=== PATIENT | female | born 1950 | race Caucasian/White ===

== ENCOUNTER 2019-12-10 16:10 | Observation (INO) | payer OTHER ==
[~2019-12-10] VITALS: Ht 154.9 cm; Wt 63.6 kg
[~2019-12-10 16:10] MED LIST: ALBU90OI INH; AMIT50 PO; AMLO5 PO; CALCAVITD; CYCL10 PO; DIAZ10 PO; Desyrel150 MG PO; ESTR2 PO; FURO20 PO; HYDACE10B PO; LOSARTAN-HCTZ1 EAC1; METFORMIN HCL500 MG PO; METO50 PO; Multiple Vitam1 EAC1 PO; NAPR220 PO; PARO20 PO; POTA8 PO; Percocet 5-3251 EACH PO; Prednisone20 MG PO; TOUJEO MAX300 UNIT/1 SC; VERAPAMIL SR240 MG PO
[2019-12-10 17:36] LABS: BASOPHILS ABSOLUTE AUTO 0.08 K/mm3 (0.00-0.23); BASOPHILS PERCENT AUTO 1 % (0-2); EOSINOPHILS ABSOLUTE AUTO 0.17 K/mm3 (0.00-0.68); EOSINOPHILS PERCENT AUTO 2 % (0-6); Hematocrit 42.4 % (33.0-51.0); Hemoglobin 13.7 g/dL (11.5-16.0); IMMATURE GRAN ABSOLUTE AUTO 0.03 K/mm3 (0.00-0.10); IMMATURE GRAN PERCENT AUTO 0 % (0-1); LYMPHOCYTES ABSOLUTE AUTO 3.16 K/mm3 (0.84-5.20); LYMPHOCYTES PERCENT AUTO 30 % (21-46); MONOCYTES ABSOLUTE AUTO 0.78 K/mm3 (0.16-1.47); MONOCYTES PERCENT AUTO 7 % (4-13); Mean Corpuscular HGB 31.4 pg (26.0-34.0); Mean Corpuscular HGB Conc 32.3 g/dL (31.5-36.5); Mean Corpuscular Volume 97 fL (80-100); Mean Platelet Volume 9.3 fL (9.1-12.4); NEUTROPHILS ABSOLUTE AUTO 6.35 K/mm3 (1.96-9.15); NEUTROPHILS PERCENT AUTO 60 % (41-73); Platelet Count 329 K/mm3 (150-400); RDW Standard Deviation 46.8 fL (35.1-46.3); Red Blood Cell Count 4.36 M/mm3 (3.80-5.20); White Blood Cell Count 10.57 K/mm3 (4.00-11.30)
[2019-12-10 17:59] LABS: Troponin I 0.059 ng/mL (0.000-0.040)
[2019-12-10 18:03] LABS: Alanine Aminotransfer (ALT/SGP 21 U/L (12-78); Albumin, Blood 3.9 g/dL (3.4-5.0); Albumin/Globulin Ratio 1.1 (0.8-1.8); Alk Phos 83 U/L (50-136); Anion Gap 2 mmol/L (6-16); Aspartate Aminotrans (AST/SGOT 22 U/L (12-37); Bilirubin, Total 0.2 mg/dL (0.1-1.0); Blood Urea Nitrogen 20 mg/dL (8-24); Bun/Creatinine Ratio 39.1 (12.0-20.0); CO2, Blood 29 mmol/L (21-32); Calcium, Blood 9.2 mg/dL (8.5-10.1); Chloride, Blood 106 mmol/L (98-108); Creatinine, Blood 0.51 mg/dL (0.40-1.00); Globulin, Blood 3.7 g/dL (2.2-4.0); Glomerular Filtration Rate >60 (60-); Glucose, Blood 44 mg/dL (70-99); Potassium, Blood 3.8 mmol/L (3.5-5.5); Sodium, Blood 137 mmol/L (136-145); Total Protein, Blood 7.6 g/dL (6.4-8.2)
[2019-12-10] MEDS ORDERED: HYDCHL25 PO (18:58)
[2019-12-10] MEDS ORDERED: LOSARTAN POTAS100 MG PO (18:58)
[2019-12-10] MEDS ORDERED: TRAZ150T57 PO (19:25)
[2019-12-11 05:29] LABS: BASOPHILS ABSOLUTE AUTO 0.07 K/mm3 (0.00-0.23); BASOPHILS PERCENT AUTO 1 % (0-2); EOSINOPHILS ABSOLUTE AUTO 0.25 K/mm3 (0.00-0.68); EOSINOPHILS PERCENT AUTO 3 % (0-6); Hematocrit 41.2 % (33.0-51.0); Hemoglobin 13.4 g/dL (11.5-16.0); IMMATURE GRAN ABSOLUTE AUTO 0.02 K/mm3 (0.00-0.10); IMMATURE GRAN PERCENT AUTO 0 % (0-1); LYMPHOCYTES ABSOLUTE AUTO 2.58 K/mm3 (0.84-5.20); LYMPHOCYTES PERCENT AUTO 29 % (21-46); MONOCYTES ABSOLUTE AUTO 0.77 K/mm3 (0.16-1.47); MONOCYTES PERCENT AUTO 9 % (4-13); Mean Corpuscular HGB 31.2 pg (26.0-34.0); Mean Corpuscular HGB Conc 32.5 g/dL (31.5-36.5); Mean Corpuscular Volume 96 fL (80-100); Mean Platelet Volume 9.9 fL (9.1-12.4); NEUTROPHILS ABSOLUTE AUTO 5.14 K/mm3 (1.96-9.15); NEUTROPHILS PERCENT AUTO 58 % (41-73); Platelet Count 267 K/mm3 (150-400); RDW Coefficient Variation 13.1 % (11.7-14.2); RDW Standard Deviation 46.5 fL (35.1-46.3); Red Blood Cell Count 4.29 M/mm3 (3.80-5.20); White Blood Cell Count 8.83 K/mm3 (4.00-11.30)
[2019-12-11 06:14] LABS: Anion Gap 7 mmol/L (6-16); Blood Urea Nitrogen 16 mg/dL (8-24); Bun/Creatinine Ratio 25.4 (12.0-20.0); CO2, Blood 26 mmol/L (21-32); Calcium, Blood 8.7 mg/dL (8.5-10.1); Chloride, Blood 109 mmol/L (98-108); Creatinine, Blood 0.63 mg/dL (0.40-1.00); Glomerular Filtration Rate >60 (60-); Glucose, Blood 106 mg/dL (70-99); Potassium, Blood 3.8 mmol/L (3.5-5.5); Sodium, Blood 142 mmol/L (136-145)
--- NOTE | 2019-12-11 06:21 | NUR ---
PCU ADMIT / SHIFT SUMMARY PT BROUGHT TO PCU RM 12 FROM ER BY GAURAV @ APPROX 2100 THIS SHIFT. PT A&O X4, ABLE TO STAND & VERY WEAKLY/UNSTEADILY AMBULATE TO PCU BED W/ 1 PERSON ASSIST. PT REPORTS NORMALLY BEING INDEPENDENT AT HOME W/ NO ISSUES AMBULATING, BUT REPORTS WEAKNESS & UNSTEADINESS FOR PAST WEEK NOW. PT ADMITTED W/ LOW CBG's, BROUGHT TO PCU W/ D5/NS GTT INFUSING @ 75 MLS/HR PER ORDERS. Q2H CBG MONITORING PER ORDERS W/ LOWEST CBG OF 53 THIS SHIFT DESPITE D5/NS GTT. PT DENIED SYMPTOMS OF HYPOGLYCEMIA, BUT WAS NOTED TO HAVE BILAT HAND TREMORS. PT PROVIDED W/ 240 MLS ORANGE JUICE & HALF TURKEY SANDWICH W/ CBG INCREASE TO 131 UPON NEXT ASSSESSMENT, SEE LABS. PT REPORTS DECREASED APPETITE & WEIGHT LOSS AT HOME. PT'S FACE AND BILAT ARMS W/ NOTED BRUISING T/O W/ PT REPORT RESULT OF "PASSING OUT" AT HOME WHEN CBG LOW. PT ENCOURAGED TO EAT FREQUENT SNACKS WHILE IN HOSPITAL & AT HOME. WILL CONTINUE TO MONITOR AND PROVIDE CARE UNTIL REPORT OFF TO DAY SHIFT RN.
--- NOTE | 2019-12-11 16:46 | NUR ---
PT DISCHARGED TO HOME TODAY, D5NS 1BAG COMPLETED THIS AM CBGS HAS BEEN WITHIN NORMAL RANGE COUPLE OF HOURS PRIOR TO DISCHARGE, CBG'S RANGING 150'S-200'S. PT ATE 80% OF BREAKFAST AND LUNCH. HRR HAS BEEN RINUS RHYTHM ON 60'S-70'S THE SYSTOLIC BP 150'S-160'S ORAL BP MEDS GIVEN THIS AM. WAS AT THE BEDSIDE TIL THE PT WAS DISCHARGED. DISCHARGE MEDICATION/INSTRUCTION DISCLOSED WITH THE PT AND , DISCHARGE FORM CONSENT SIGNED. PT WAS ACCOMPANIED BY PCT FOR TRASNPORT. ALL BELONGINGS SENT WITH THE PATIENT.
== END 2019-12-11 16:35 | disposition home or self-care (01) ==
LOC: ER 16:10 → PCU 16:11
PROVIDERS: Physician Assistant; ADMIT Internal Medicine
DX: E11.649 Type 2 diabetes mellitus with hypoglycemia without coma (principal); R55 Syncope and collapse; I10 Essential (primary) hypertension; F41.9 Anxiety disorder, unspecified; F32.9 Major depressive disorder, single episode, unspecified; F17.210 Nicotine dependence, cigarettes, uncomplicated; Z91.013 Allergy to seafood; Z79.4 Long term (current) use of insulin; Z79.899 Other long term (current) drug therapy
CPT/HCPCS: 36415; 70450; 80048; 80053; 82947; 84484; 85025; 93005; 93010; 96372; 96374; 96375; 97161; 99285-25; A9270; A9270-GY; G0378; J0360; J1650; J7042

== ENCOUNTER → 2022-05-11 | Outpatient (CLI) | payer OTHER ==
[~2022-05-11] MED LIST changes: +HYDCHL25 PO; +LOSARTAN POTAS100 MG PO; +TRAZ150T57 PO
[2022-05-12 13:59] LABS: Candida species (DNA Probe) Positive (NEGATIVE); G. vaginalis (DNA Probe) Negative (NEGATIVE); T. vaginalis (DNA Probe) Negative (NEGATIVE)
== END | disposition home or self-care (01) ==
LOC: LAB 15:56 → LAB SHORT 15:56
PROVIDERS: Physician Assistant
DX: N76.0 Acute vaginitis (principal)
CPT/HCPCS: 87480; 87510; 87660

== ENCOUNTER → 2022-08-07 | Outpatient (CLI) | payer OTHER ==
[~2022-08-07] MED LIST changes: +DIAZ2; +HYDR1TAB94 PO; +SULTRIDS PO; +VENL150ER PO
== END | disposition home or self-care (01) ==
LOC: LAB SHORT 12:45 → LAB 12:45
DX: Z48.89 Encounter for other specified surgical aftercare (principal)
CPT/HCPCS: 87070; 87106; 87205

== ENCOUNTER → 2022-08-10 | Outpatient (CLI) | payer OTHER | END | disposition home or self-care (01) | LOC: LAB SHORT 13:52 → LAB 13:52 | DX: L08.9 Local infection of the skin and subcutaneous tissue, unspecified (principal) | CPT/HCPCS: 87070; 87075; 87106; 87205 ==

== ENCOUNTER 2022-08-12 11:00 | Emergency (ER) | payer OTHER ==
[~2022-08-12] VITALS: Ht 154.9 cm; Wt 65.8 kg
[~2022-08-12 11:00] MED LIST changes: -DIAZ2; -HYDR1TAB94 PO; -SULTRIDS PO; -VENL150ER PO
[2022-08-12 12:46] LABS: BASOPHILS ABSOLUTE AUTO 0.06 K/mm3 (0.00-0.23); BASOPHILS PERCENT AUTO 1 % (0-2); EOSINOPHILS ABSOLUTE AUTO 0.15 K/mm3 (0.00-0.68); EOSINOPHILS PERCENT AUTO 2 % (0-6); Hematocrit 36.7 % (33.0-51.0); Hemoglobin 11.9 g/dL (11.5-16.0); IMMATURE GRAN ABSOLUTE AUTO 0.02 K/mm3 (0.00-0.10); IMMATURE GRAN PERCENT AUTO 0 % (0-1); LYMPHOCYTES ABSOLUTE AUTO 1.93 K/mm3 (0.84-5.20); LYMPHOCYTES PERCENT AUTO 26 % (21-46); MONOCYTES ABSOLUTE AUTO 0.58 K/mm3 (0.16-1.47); MONOCYTES PERCENT AUTO 8 % (4-13); Mean Corpuscular HGB 30.2 pg (26.0-34.0); Mean Corpuscular HGB Conc 32.4 g/dL (31.5-36.5); Mean Corpuscular Volume 93 fL (80-100); Mean Platelet Volume 9.9 fL (9.1-12.4); NEUTROPHILS ABSOLUTE AUTO 4.62 K/mm3 (1.96-9.15); NEUTROPHILS PERCENT AUTO 63 % (41-73); Platelet Count 197 K/mm3 (150-400); RDW Coefficient Variation 13.4 % (11.7-14.2); RDW Standard Deviation 45.7 fL (35.1-46.3); Red Blood Cell Count 3.94 M/mm3 (3.80-5.20); White Blood Cell Count 7.36 K/mm3 (4.00-11.30)
[2022-08-12 13:09] LABS: C-REACTIVE PROTEIN, EXT RANGE <0.290 mg/dL (0.000-0.300)
[2022-08-12 13:13] LABS: Anion Gap 8 mmol/L (6-16); Blood Urea Nitrogen 25 mg/dL (8-24); Bun/Creatinine Ratio 35.2 (12.0-20.0); CO2, Blood 22 mmol/L (21-32); Chloride, Blood 110 mmol/L (98-108); Creatinine, Blood 0.71 mg/dL (0.40-1.00); Glomerular Filtration Rate 90 (60-); Glucose, Blood 114 mg/dL (70-99); Potassium, Blood 5.4 mmol/L (3.5-5.5); Sodium, Blood 140 mmol/L (136-145)
[2022-08-12] MEDS ORDERED: DIAZ2 (13:22)
[2022-08-12] MEDS ORDERED: VENL150ER PO (13:23)
[2022-08-12] MEDS ORDERED: SULTRIDS PO (13:27)
[2022-08-12] MEDS ORDERED: HYDR1TAB94 PO (13:27)
== END 2022-08-12 14:55 | disposition home or self-care (01) ==
LOC: ER 11:00
PROVIDERS: Emergency Medicine
DX: E11.622 Type 2 diabetes mellitus with other skin ulcer (principal); L97.521 Non-pressure chronic ulcer of other part of left foot limited to breakdown of skin; I10 Essential (primary) hypertension; F17.200 Nicotine dependence, unspecified, uncomplicated; Z91.041 Radiographic dye allergy status; Z91.013 Allergy to seafood; Z79.899 Other long term (current) drug therapy; Z79.84 Long term (current) use of oral hypoglycemic drugs
CPT/HCPCS: 73630; 80048; 85025; 85651; 86140; J2405; J2543; J3010

== ENCOUNTER 2022-09-26 21:16 | Emergency (ER) | payer OTHER ==
[~2022-09-26] VITALS: Ht 154.9 cm; Wt 62.6 kg
[~2022-09-26 21:16] MED LIST changes: +DIAZ2; +HYDR1TAB94 PO; +SULTRIDS PO; +VENL150ER PO
[2022-09-26 22:01] LABS: BASOPHILS ABSOLUTE AUTO 0.06 K/mm3 (0.00-0.23); BASOPHILS PERCENT AUTO 1 % (0-2); EOSINOPHILS ABSOLUTE AUTO 0.43 K/mm3 (0.00-0.68); EOSINOPHILS PERCENT AUTO 7 % (0-6); Hematocrit 29.6 % (33.0-51.0); Hemoglobin 9.5 g/dL (11.5-16.0); IMMATURE GRAN ABSOLUTE AUTO 0.02 K/mm3 (0.00-0.10); IMMATURE GRAN PERCENT AUTO 0 % (0-1); LYMPHOCYTES ABSOLUTE AUTO 2.46 K/mm3 (0.84-5.20); LYMPHOCYTES PERCENT AUTO 39 % (21-46); MONOCYTES ABSOLUTE AUTO 0.56 K/mm3 (0.16-1.47); MONOCYTES PERCENT AUTO 9 % (4-13); Mean Corpuscular HGB 30.9 pg (26.0-34.0); Mean Corpuscular HGB Conc 32.1 g/dL (31.5-36.5); Mean Corpuscular Volume 96 fL (80-100); Mean Platelet Volume 9.3 fL (9.1-12.4); NEUTROPHILS ABSOLUTE AUTO 2.83 K/mm3 (1.96-9.15); NEUTROPHILS PERCENT AUTO 45 % (41-73); Platelet Count 306 K/mm3 (150-400); RDW Coefficient Variation 13.7 % (11.7-14.2); RDW Standard Deviation 48.8 fL (35.1-46.3); Red Blood Cell Count 3.07 M/mm3 (3.80-5.20); White Blood Cell Count 6.36 K/mm3 (4.00-11.30)
[2022-09-26 22:57] LABS: Alanine Aminotransfer (ALT/SGP 19 U/L (12-78); Albumin, Blood 3.3 g/dL (3.4-5.0); Alk Phos 73 U/L (50-136); Anion Gap 7 mmol/L (6-16); Aspartate Aminotrans (AST/SGOT 15 U/L (12-37); Bilirubin, Total <0.1 mg/dL (0.1-1.0); Blood Urea Nitrogen 25 mg/dL (8-24); Bun/Creatinine Ratio 18.7 (12.0-20.0); CO2, Blood 23 mmol/L (21-32); Calcium, Blood 8.6 mg/dL (8.5-10.1); Chloride, Blood 110 mmol/L (98-108); Creatinine, Blood 1.34 mg/dL (0.40-1.00); Globulin, Blood 3.2 g/dL (2.2-4.0); Glomerular Filtration Rate 42 (60-); Glucose, Blood 133 mg/dL (70-99); Potassium, Blood 5.2 mmol/L (3.5-5.5); Sodium, Blood 140 mmol/L (136-145); Total Protein, Blood 6.5 g/dL (6.4-8.2)
== END 2022-09-27 00:17 | disposition left against medical advice (07) ==
LOC: ER 21:16
PROVIDERS: Physician Assistant
DX: R41.82 Altered mental status, unspecified (principal); E11.9 Type 2 diabetes mellitus without complications; I10 Essential (primary) hypertension; F17.200 Nicotine dependence, unspecified, uncomplicated; Z88.8 Allergy status to other drugs, medicaments and biological substances; Z91.013 Allergy to seafood; Z79.899 Other long term (current) drug therapy; Z53.21 Procedure and treatment not carried out due to patient leaving prior to being seen by health care provider
CPT/HCPCS: 36415; 70450; 80053; 85025; 93005; 93010

== ENCOUNTER 2023-01-08 18:35 | Emergency (ER) | payer OTHER ==
[~2023-01-08] VITALS: Ht 157.5 cm; Wt 54.4 kg
[2023-01-08 19:31] LABS: Source, Urine Clean Catch
[2023-01-08 19:37] LABS: BASOPHILS ABSOLUTE AUTO 0.06 K/mm3 (0.00-0.23); BASOPHILS PERCENT AUTO 1 % (0-2); EOSINOPHILS PERCENT AUTO 2 % (0-6); Hematocrit 33.3 % (33.0-51.0); Hemoglobin 11.2 g/dL (11.5-16.0); IMMATURE GRAN ABSOLUTE AUTO 0.02 K/mm3 (0.00-0.10); IMMATURE GRAN PERCENT AUTO 0 % (0-1); LYMPHOCYTES PERCENT AUTO 30 % (21-46); MONOCYTES ABSOLUTE AUTO 0.51 K/mm3 (0.16-1.47); MONOCYTES PERCENT AUTO 8 % (4-13); Mean Corpuscular HGB 29.8 pg (26.0-34.0); Mean Corpuscular HGB Conc 33.6 g/dL (31.5-36.5); Mean Corpuscular Volume 89 fL (80-100); Mean Platelet Volume 9.9 fL (9.1-12.4); NEUTROPHILS ABSOLUTE AUTO 3.72 K/mm3 (1.96-9.15); NEUTROPHILS PERCENT AUTO 59 % (41-73); Platelet Count 256 K/mm3 (150-400); RDW Coefficient Variation 13.2 % (11.7-14.2); Red Blood Cell Count 3.76 M/mm3 (3.80-5.20); White Blood Cell Count 6.31 K/mm3 (4.00-11.30)
[2023-01-08 19:45] LABS: Appearance, Urine Clear (Clear); Bilirubin, Urine Neg (Neg); Blood, Urine Neg (Neg); Glucose Qualitative, Urine 4+ (Neg); Ketones, Urine Neg (Neg); Leukocyte Esterase, Urine 1+ (Neg); Nitrite, Urine Neg (Neg); Protein, Urine Neg (Neg); Specific Gravity, Urine 1.015 (1.003-1.022); Urobilinogen, Urine NORM (Normal)
[2023-01-08 19:55] LABS: Albumin, Blood 3.6 g/dL (3.4-5.0); Albumin/Globulin Ratio 1.1 (0.8-1.8); Bilirubin, Total 0.2 mg/dL (0.1-1.0); Bun/Creatinine Ratio 26.5 (12.0-20.0); Calcium, Blood 8.8 mg/dL (8.5-10.1); Creatinine, Blood 0.83 mg/dL (0.40-1.00); Globulin, Blood 3.3 g/dL (2.2-4.0); Potassium, Blood 4.3 mmol/L (3.5-5.5); Total Protein, Blood 6.9 g/dL (6.4-8.2)
[2023-01-08 20:01] LABS: Color, Urine Pale Yellow (P-Yellow)
[2023-01-08 20:11] LABS: Bacteria Mod /hpf; Red Blood Cells, Urine 0-2 /hpf (0-2); Squamous Epithelial Cells Rare /hpf (Few); White Blood Cells, Urine 0-2 /hpf (0-5)
[2023-01-08 20:27] LABS: Base Excess Venous 2.8 mmol/L; Bicarbonate Venous 26.2 mmol/L (24.0-30.0); PCO2 Venous 47.2 mmHg (38-42); pH Blood Venous 7.38 (7.34-7.37)
== END 2023-01-08 21:54 | disposition home or self-care (01) ==
LOC: ER 18:35
PROVIDERS: Emergency Medicine
DX: E11.65 Type 2 diabetes mellitus with hyperglycemia (principal); Z79.4 Long term (current) use of insulin; Z79.899 Other long term (current) drug therapy
CPT/HCPCS: 80053; 81001; 82010; 82803; 82947; 85025; 87086; 93005; 93010; 99285-25; J1815; J7030

== ENCOUNTER 2025-06-25 02:28 | Observation (INO) | payer OTHER ==
[~2025-06-25] VITALS: Ht 157.5 cm; Wt 53.6 kg
[~2025-06-25 02:28] MED LIST changes: +CEPH500 PO; +DOXY100 PO
[2025-06-25 02:56] LABS: BASOPHILS ABSOLUTE AUTO 0.10 K/mm3 (0.00-0.23); BASOPHILS PERCENT AUTO 1 % (0-2); EOSINOPHILS ABSOLUTE AUTO 0.40 K/mm3 (0.00-0.68); EOSINOPHILS PERCENT AUTO 3 % (0-6); Hematocrit 31.2 % (33.0-51.0); Hemoglobin 10.6 g/dL (11.5-16.0); IMMATURE GRAN ABSOLUTE AUTO 0.03 K/mm3 (0.00-0.10); IMMATURE GRAN PERCENT AUTO 0 % (0-1); LYMPHOCYTES ABSOLUTE AUTO 2.02 K/mm3 (0.84-5.20); LYMPHOCYTES PERCENT AUTO 17 % (21-46); MONOCYTES ABSOLUTE AUTO 0.77 K/mm3 (0.16-1.47); MONOCYTES PERCENT AUTO 6 % (4-13); Mean Corpuscular HGB Conc 34.0 g/dL (31.5-36.5); Mean Corpuscular Volume 91 fL (80-100); NEUTROPHILS ABSOLUTE AUTO 8.83 K/mm3 (1.96-9.15); NEUTROPHILS PERCENT AUTO 73 % (41-73); NRBC ABSOLUTE 0.00 K/mm3 (0.00-0.02); NRBC Auto 0.0 /100 WBC (0.0-0.2); Platelet Count 301 K/mm3 (150-400); RDW Coefficient Variation 14.6 % (11.7-14.2); RDW Standard Deviation 48.0 fL (35.1-46.3)
[2025-06-25 03:18] LABS: Alanine Aminotransfer (ALT/SGP 16.0 U/L (12-78); Albumin, Blood 2.9 g/dL (3.4-5.0); Albumin/Globulin Ratio 1.0 (0.8-1.8); Anion Gap 9.0 mmol/L (3-11); Aspartate Aminotrans (AST/SGOT 20.0 U/L (12-37); Bilirubin, Total 0.3 mg/dL (0.1-1.0); Blood Urea Nitrogen 21.0 mg/dL (8-24); CO2, Blood 24.0 mmol/L (21-32); Calcium, Blood 7.8 mg/dL (8.5-10.1); Chloride, Blood 108.0 mmol/L (98-108); Creatinine, Blood 0.95 mg/dL (0.40-1.00); Globulin, Blood 2.8 g/dL (2.2-4.0); Glucose, Blood 169.0 mg/dL (70-99); Potassium, Blood 3.1 mmol/L (3.5-5.5); Sodium, Blood 138.0 mmol/L (136-145); Total Protein, Blood 5.7 g/dL (6.4-8.2)
[2025-06-25 04:16] LABS: pH Blood Venous 7.39 (7.34-7.37)
[2025-06-25 04:23] LABS: Magnesium, Blood 1.8 mg/dL (1.6-2.4); Phosphorus, Blood 3.7 mg/dL (2.5-4.9); Thyroid Stimulating Hormone 4.02 uIU/mL (0.360-4.800)
[2025-06-25 04:42] LABS: Source, Urine Clean Catch
[2025-06-25 04:48] LABS: Bilirubin, Urine Neg (Neg); Glucose Qualitative, Urine Neg (Neg); Ketones, Urine Neg (Neg); Leukocyte Esterase, Urine Neg (Neg); Protein, Urine 2+ (Neg); Specific Gravity, Urine 1.015 (1.003-1.022); Urobilinogen, Urine NORM (Normal)
[2025-06-25 04:53] LABS: Color, Urine Pale Yellow (P-Yellow)
[2025-06-25 04:54] LABS: Red Blood Cells, Urine 0-2 /hpf (0-2); White Blood Cells, Urine 0-2 /hpf (0-5)
[2025-06-25] MEDS ORDERED: Ondansetron HCl 2 MG / ML 2ML Vial IV PRN (05:10)
[2025-06-25] MEDS ORDERED: D5W-1/2NS KCl 20mEq 1,000 ML IV SCH (06:00)
[2025-06-25] MEDS ORDERED: HYDRA25 PO (06:43)
[2025-06-25 06:52] VITALS: BP 168/94
--- NOTE | 2025-06-25 06:53 | NUR ---
SHIFT SUMMARY REPORT RECIEVED FROM ER NURSE, PT ARRIVED TO PCU VIA [facility] AROUND 604. PT STOOD AND TRANSFERED FROM [facility] TO [facility] TO BED WITH 1PA WITH FWW. PT WITH GENERALIZED WEAKNESS, UNSTEADY GAIT. A&O X4, CALM, COOPERATIVE TO CARE. HR IN DELMI 70'S-80'S, SR, SHE DENIES ANY CP/PRESSURE, SBP ELEVATED. SpO2 >92% ON RA, SHE DENIES ANY SOB. CBG CHECKED UPON ARRIVAL STABLE AT THIS TIME. PT RESTING IN BED AT THIS TIME. CALL LIGHT IN REACH. WILL REPORT TO ONCOMING RN.
[2025-06-25 07:37] VITALS: BP 155/65
[2025-06-25 11:34] VITALS: BP 139/63
[2025-06-25] MEDS ORDERED: Albuterol HFA200 ACT/6.7 GM INH INH PRN (13:25)
[2025-06-25] MEDS ORDERED: Norco 10-325 T1 EACH PO (14:03)
--- NOTE | 2025-06-25 14:36 | NUR ---
UPDATE PT MEDICAL NO TELEMETRY STATUS. A&O X4. 1 PERSON SBA TO BSC. VSS. SPO2 > 92% ON RA. Q4H CBG MONITORING. D5 1/2NS GTT INFUSING @ 75ML/HR PER EMAR. PT EARTING 100% OF BREAKFAST & LUNCH THIS SHIFT. NOTIFIED PT CBG 185 UPON MOST RECENT CHECK. W/ ORDER TO DISCONTINUE D5 1/2NS GTT.
[2025-06-25] MEDS ORDERED: HYDROcodone 10-APAP 325 TAB PO ONE (15:00)
[2025-06-25] MEDS ORDERED: HYDROcodone 5-APAP 325 TAB PO ONE (15:00)
[2025-06-25] MEDS ORDERED: HYDROcodone 10-APAP 325 TAB PO PRN (15:00)
[2025-06-25] MEDS ORDERED: HYDROcodone 5-APAP 325 TAB PO PRN (15:00)
--- NOTE | 2025-06-25 15:19 | NUR ---
Pt. is awake in bed and welcomes my visit. Pt. is pleasant. Facilitated a life review and listened with interest and empathy. Pt. verbalizes that she has had wonderful care here and for the spiritual care visit.
[2025-06-25 17:09] VITALS: BP 119/76
--- NOTE | 2025-06-25 18:00 | NUR ---
Transfer to Medical Report given to accepting medical floor RN assuming care of pt. Pt taken to rm 339 w/ belongings @ approx 1800. Pt A&O x4. VSS. Spo2 > 92% on RA.
--- NOTE | 2025-06-25 18:13 | NUR ---
ASSUMPTION OF CARE NOTE: PATIENT ARRIVES TO ROOM AT 1758 VIA WC FROM PCU 7. ASSUMED CARE OF PATIENT. PATIENT ASSISTED UP TO BSC AND TRANSFERRED TO BED c 1 ASSIST. PATIENT ORIENTATED TO ROOM AND CALL SYSTEM. BED ALARM ON FOR SAFETY. CALL LIGHT IN REACH.
[2025-06-25 19:31] VITALS: BP 155/52
[2025-06-26 03:35] VITALS: BP 160/67
[2025-06-26 06:13] LABS: BASOPHILS ABSOLUTE AUTO 0.09 K/mm3 (0.00-0.23); BASOPHILS PERCENT AUTO 1 % (0-2); EOSINOPHILS ABSOLUTE AUTO 0.41 K/mm3 (0.00-0.68); EOSINOPHILS PERCENT AUTO 4 % (0-6); Hematocrit 33.5 % (33.0-51.0); Hemoglobin 11.2 g/dL (11.5-16.0); IMMATURE GRAN ABSOLUTE AUTO 0.03 K/mm3 (0.00-0.10); IMMATURE GRAN PERCENT AUTO 0 % (0-1); LYMPHOCYTES ABSOLUTE AUTO 2.03 K/mm3 (0.84-5.20); LYMPHOCYTES PERCENT AUTO 21 % (21-46); MONOCYTES ABSOLUTE AUTO 0.85 K/mm3 (0.16-1.47); MONOCYTES PERCENT AUTO 9 % (4-13); Mean Corpuscular HGB Conc 33.4 g/dL (31.5-36.5); Mean Corpuscular Volume 90 fL (80-100); NEUTROPHILS ABSOLUTE AUTO 6.14 K/mm3 (1.96-9.15); NEUTROPHILS PERCENT AUTO 64 % (41-73); NRBC ABSOLUTE 0.00 K/mm3 (0.00-0.02); NRBC Auto 0.0 /100 WBC (0.0-0.2); Platelet Count 283 K/mm3 (150-400); RDW Coefficient Variation 14.6 % (11.7-14.2); RDW Standard Deviation 48.3 fL (35.1-46.3)
[2025-06-26 06:33] LABS: Albumin, Blood 2.6 g/dL (3.4-5.0); Anion Gap 7 mmol/L (3-11); Blood Urea Nitrogen 13 mg/dL (8-24); CO2, Blood 29 mmol/L (21-32); Calcium, Blood 8.3 mg/dL (8.5-10.1); Chloride, Blood 107 mmol/L (98-108); Creatinine, Blood 0.83 mg/dL (0.40-1.00); Glucose, Blood 156 mg/dL (70-99); Phosphorus, Blood 2.4 mg/dL (2.5-4.9); Potassium, Blood 3.8 mmol/L (3.5-5.5); Sodium, Blood 139 mmol/L (136-145)
[2025-06-26 07:49] VITALS: BP 164/72
--- NOTE | 2025-06-26 08:02 | NUR ---
Shift Summary AOx4. Slept okay tonight. Effectively medicated x 1 for 9/10 pain. Calling appropriately for needs. Up several times to the bedside commode to void. Bed alarm on for safety. Call light in reach. Patient lookin forward to goingt home today. Had an uneventful night.
[2025-06-26] MEDS ORDERED: Insulin Human Lispro 100 Units/ML 3ML Syringe SC SCH (15:00)
[2025-06-26 15:33] VITALS: BP 179/80
[2025-06-26 16:21] VITALS: BP 155/65
[2025-06-26] MEDS ORDERED: Sodium Phosphate Mono/Dibasic 250 MG Tab PO SCH (18:00)
--- NOTE | 2025-06-26 18:51 | NUR ---
SHIFT SUMMARY: PATIENT BLOOD SUGAR BEFORE LUNCH WAS IN MID 300'S. DR. SAHNI STARTED HER ON SHORT ACTING INSULIN, RECEIVED COVERAGE PER EMAR. PATIENT WORK c PT TODAY, RECOMMENDING SNF. PATIENT IS NOT HAPPY c RECOMMENDATION AND ADAMANT OF GOING HOME. PATIENT EDUCATED ON RISK/BENEFITS GOING TO SNF. PATIENT VERBALIZED UNDERSTANDING, STATED, "I TOTALLY UNDERSTAND, BUT GOING TO REHAB IT'S NOT AN OPTION FOR ME AND I'M GOING HOME." ETHNIC ORIGINS TEACHER, MATTHEW IS AWARE. PATIENT MEDICATED FOR PAIN PER EMAR c GOOD EFFECT. PATIENT HAS GOOD APPETITE, CONTINENT OF BLADDER AND AMBULATES TO BATHROOM/BACK IN BED c 1 ASSIST/FWW. VITAL SIGNS REVIEWED. BED ALARM ON FOR SAFETY. CALL LIGHT IN REACH.
--- NOTE | 2025-06-26 19:48 | NUR ---
CBG checks to [facility] Humalog was added to patient's EMAR to be given [facility]. CBG frequency changed from Q4H to [facility]. "PRN S/S hypoglycemia" was rolled over from original order.
[2025-06-26 19:50] VITALS: BP 171/65
--- NOTE | 2025-06-26 20:00 | NUR ---
Hypertension - Norvasc ordered Patient noted to be having hypertension since she's been admitted. Compared Med Rec list to Medication Claim History which showed some inconsistencies. I've reviewed the medication claim history with patient and she confirms having been prescribed and is currently taking these meds. Med Rec updated to include meds that were not previously entered. Obtained an order from Yadiel Tyler NP via telephone to resume home med Norvasc 5mg BID starting tonight for better blood pressure control.
[2025-06-26] MEDS ORDERED: HYDPAM25 PO (20:03)
[2025-06-26] MEDS ORDERED: NEBI5 PO (20:12)
[2025-06-26] MEDS ORDERED: GABA300 PO (20:12)
[2025-06-26] MEDS ORDERED: CYCL10 PO (20:13)
[2025-06-26] MEDS ORDERED: DULO30 PO (20:13)
[2025-06-26] MEDS ORDERED: NAPR500 PO (20:14)
[2025-06-26] MEDS ORDERED: Crestor40 MG PO (20:14)
[2025-06-26 23:50] VITALS: BP 160/78
[2025-06-27 03:10] VITALS: BP 153/72
--- NOTE | 2025-06-27 06:45 | NUR ---
Shift Summary AOx3-4. Pleasant. C/O 05/30 neck/shoulder/back pain alleviated with PRN norco. Calls for assistance to bathroom. 1pa w/ FWW and GB. Voiding well, multiple trips to the bathroom. Home med rec updated to include meds not previously entered. Some elevated bp's tonight, otherwise, VSS. Bed alarm on. Call light in reach.
[2025-06-27 08:16] VITALS: BP 162/100
[2025-06-27 15:44] VITALS: BP 158/71
--- NOTE | 2025-06-27 18:18 | NUR ---
SHIFT SUMMARY PATIENT ALERT AND INTERACTIVE. PATIENT ABLE TO AMBULATE WITH WALKER TO BR WITH STAND BY ASSIST. PATIENT UPSET AT BEGINING OF SHIFT BECAUSE SHE WAS NOT GETTING TO DISCHARGE. PROVIDED EDUCATION ABOUT SAFE DISCHARGE AND FALL RISK. PATIENT VERBALIZED UNDERSTANDING. IN TO SEE PATIENT WITH DOG. PATIENT MOOD IMPROVED AFTER DOG VISIT. PATIENT CONTINUES TO HAVE HEADACHE AND SHOULDER DISCOMFORT EVEN WITH MEDICATING FOR PAIN. HEATING PAD PROVIDED TO PATIENT. PLAN TO DISCHARGE TOMORROW.
[2025-06-27 19:47] LABS: SERUM, C-PEPTIDE 0.2 ng/mL (0.5-3.3)
[2025-06-27 19:57] VITALS: BP 175/63
[2025-06-28 00:21] VITALS: BP 153/70
[2025-06-28 03:45] VITALS: BP 159/60
--- NOTE | 2025-06-28 05:16 | NUR ---
Shift Summary AOx4. Patient and myself have a clear agreement that bed alarm will stay off ONLY if she calls BEFORE gettig oob to inform staff so we can go in and help her. Patient has been cooperative. Plan for discharge today; however, blood pressure is still higher than what patient is used to. Medicated for 9/10 back/neck/head pain per EMAR with good effect. Melclizine is actually scheduled PRN, and desite having given it twice tonight and having patient slowly sit up from a lying position, patient still gets a little dizzy, estimating at least 1-2 minutes of sitting at the edge of the bed prior to standing in order to have the dizziness subside. Also, progress note states that patient is to take norvasc 5mg once daily but she is currently taking it BID here in the hospital as well as at home. Based on her hypertension at night SBP 170s, she does need something to adequately manage her hypertension. She's also not on hydralazine and never has been based on her medication claim history and patient's statement.
[2025-06-28 05:43] LABS: BASOPHILS ABSOLUTE AUTO 0.10 K/mm3 (0.00-0.23); BASOPHILS PERCENT AUTO 1 % (0-2); EOSINOPHILS ABSOLUTE AUTO 0.39 K/mm3 (0.00-0.68); EOSINOPHILS PERCENT AUTO 4 % (0-6); Hematocrit 33.8 % (33.0-51.0); Hemoglobin 11.4 g/dL (11.5-16.0); IMMATURE GRAN ABSOLUTE AUTO 0.03 K/mm3 (0.00-0.10); IMMATURE GRAN PERCENT AUTO 0 % (0-1); LYMPHOCYTES ABSOLUTE AUTO 2.34 K/mm3 (0.84-5.20); LYMPHOCYTES PERCENT AUTO 23 % (21-46); MONOCYTES ABSOLUTE AUTO 0.88 K/mm3 (0.16-1.47); MONOCYTES PERCENT AUTO 9 % (4-13); Mean Corpuscular HGB Conc 33.7 g/dL (31.5-36.5); Mean Corpuscular Volume 91 fL (80-100); NEUTROPHILS ABSOLUTE AUTO 6.44 K/mm3 (1.96-9.15); NEUTROPHILS PERCENT AUTO 63 % (41-73); NRBC ABSOLUTE 0.00 K/mm3 (0.00-0.02); NRBC Auto 0.0 /100 WBC (0.0-0.2); Platelet Count 298 K/mm3 (150-400); RDW Coefficient Variation 14.2 % (11.7-14.2); RDW Standard Deviation 47.2 fL (35.1-46.3)
[2025-06-28 06:04] LABS: Anion Gap 6.0 mmol/L (3-11); Blood Urea Nitrogen 15.0 mg/dL (8-24); CO2, Blood 32.0 mmol/L (21-32); Calcium, Blood 8.5 mg/dL (8.5-10.1); Chloride, Blood 103.0 mmol/L (98-108); Creatinine, Blood 0.68 mg/dL (0.40-1.00); Glucose, Blood 201.0 mg/dL (70-99); Potassium, Blood 3.4 mmol/L (3.5-5.5); Sodium, Blood 138.0 mmol/L (136-145)
[2025-06-28 08:10] VITALS: BP 165/69
[2025-06-28] MEDS ORDERED: DULoxetine HCL 30 MG Cap DR PO SCH (09:00)
[2025-06-28] MEDS ORDERED: Norco 5-325 Ta1 EACH PO (16:02)
[2025-06-28] MEDS ORDERED: MECL25 PO (16:04)
[2025-06-28 16:10] VITALS: BP 153/65
--- NOTE | 2025-06-28 16:49 | NUR ---
DISCHARGE NOTE PT EDUCATED ON DISCHARGE PACKET AND INSTRUCTIONS. IV REMOVED. EDUCATED ON NEW DISCHARGE MED REC AND VERBALIZED UNDERSTANDING. ESCORTED DOWN VIA WHEELCHAIR BY CLAIMS AGENT RIGHT OF WAY. NO NEW QUESTIONS OR CONCERNS PRIOR TO DC.
[2025-06-28 21:45] LABS: INSULIN FREE 5 uIU/mL (3-25); TOTAL INSULIN 6 uIU/mL (3-25)
== END 2025-06-28 16:48 | disposition home health service (06) ==
LOC: ER 02:28 → PCU 02:29 → MEDS 17:54
PROVIDERS: Emergency Medicine; Family Medicine; ADMIT Student in an Organized Health Care Education/Training Program
DX: E11.649 Type 2 diabetes mellitus with hypoglycemia without coma (principal); S00.81XA Abrasion of other part of head, initial encounter; W18.30XA Fall on same level, unspecified, initial encounter; R29.6 Repeated falls; E87.6 Hypokalemia; R42 Dizziness and giddiness; I10 Essential (primary) hypertension; F17.200 Nicotine dependence, unspecified, uncomplicated; Z79.84 Long term (current) use of oral hypoglycemic drugs; Z79.899 Other long term (current) drug therapy; Z88.8 Allergy status to other drugs, medicaments and biological substances; Z91.013 Allergy to seafood; Z90.49 Acquired absence of other specified parts of digestive tract; Z90.710 Acquired absence of both cervix and uterus
CPT/HCPCS: 36415; 70450; 71045; 72125; 72170; 80048; 80053; 80069; 81001; 82533; 82803; 82947; 83525; 83527; 83735; 84100; 84443; 84681; 85025; 93005; 93010; 96374; 96375; 96376; 97110; 97116; 97161; 97165; 97530; 97535; 99285-25; A9270; G0378

== ENCOUNTER 2025-07-08 11:06 | Emergency (ER) | payer OTHER ==
[~2025-07-08] VITALS: Ht 157.5 cm; Wt 53.5 kg
[~2025-07-08 11:06] MED LIST changes: +Crestor40 MG PO; +DULO30 PO; +GABA300 PO; +HYDPAM25 PO; +HYDRA25 PO; +MECL25 PO; +NAPR500 PO; +NEBI5 PO; +Norco 10-325 T1 EACH PO; +Norco 5-325 Ta1 EACH PO
[2025-07-08 12:09] LABS: BASOPHILS ABSOLUTE AUTO 0.13 K/mm3 (0.00-0.23); BASOPHILS PERCENT AUTO 1 % (0-2); EOSINOPHILS ABSOLUTE AUTO 0.32 K/mm3 (0.00-0.68); EOSINOPHILS PERCENT AUTO 3 % (0-6); Hematocrit 33.2 % (33.0-51.0); Hemoglobin 11.0 g/dL (11.5-16.0); IMMATURE GRAN ABSOLUTE AUTO 0.05 K/mm3 (0.00-0.10); IMMATURE GRAN PERCENT AUTO 0 % (0-1); LYMPHOCYTES ABSOLUTE AUTO 1.49 K/mm3 (0.84-5.20); LYMPHOCYTES PERCENT AUTO 12 % (21-46); MONOCYTES ABSOLUTE AUTO 0.75 K/mm3 (0.16-1.47); MONOCYTES PERCENT AUTO 6 % (4-13); Mean Corpuscular HGB Conc 33.1 g/dL (31.5-36.5); Mean Corpuscular Volume 95 fL (80-100); NEUTROPHILS ABSOLUTE AUTO 9.24 K/mm3 (1.96-9.15); NEUTROPHILS PERCENT AUTO 77 % (41-73); NRBC ABSOLUTE 0.00 K/mm3 (0.00-0.02); NRBC Auto 0.0 /100 WBC (0.0-0.2); Platelet Count 296 K/mm3 (150-400); RDW Coefficient Variation 14.9 % (11.7-14.2); RDW Standard Deviation 52.2 fL (35.1-46.3)
[2025-07-08 12:59] LABS: Alanine Aminotransfer (ALT/SGP 17.0 U/L (12-78); Albumin, Blood 3.1 g/dL (3.4-5.0); Albumin/Globulin Ratio 1.0 (0.8-1.8); Anion Gap 10.0 mmol/L (3-11); Aspartate Aminotrans (AST/SGOT 17.0 U/L (12-37); Bilirubin, Total 0.4 mg/dL (0.1-1.0); Blood Urea Nitrogen 21.0 mg/dL (8-24); CO2, Blood 19.0 mmol/L (21-32); Calcium, Blood 8.1 mg/dL (8.5-10.1); Chloride, Blood 110.0 mmol/L (98-108); Creatinine, Blood 0.86 mg/dL (0.40-1.00); Globulin, Blood 3.2 g/dL (2.2-4.0); Glucose, Blood 91.0 mg/dL (70-99); Potassium, Blood 4.1 mmol/L (3.5-5.5); Sodium, Blood 135.0 mmol/L (136-145); Total Protein, Blood 6.3 g/dL (6.4-8.2)
[2025-07-08] MEDS ORDERED: NS 1,000 ML IV SCH (13:40)
[2025-07-08 14:07] LABS: Source, Urine Clean Catch
[2025-07-08 14:37] LABS: Bilirubin, Urine Neg (Neg); Color, Urine Yellow (P-Yellow); Glucose Qualitative, Urine Neg (Neg); Ketones, Urine Neg (Neg); Leukocyte Esterase, Urine Neg (Neg); Protein, Urine 3+ (Neg); Specific Gravity, Urine 1.015 (1.003-1.022); Urobilinogen, Urine NORM (Normal)
[2025-07-08 14:50] LABS: Red Blood Cells, Urine 0-2 /hpf (0-2)
[2025-07-08 15:25] VITALS: BP 153/91
== END 2025-07-08 15:28 | disposition home or self-care (01) ==
LOC: ER 11:06
PROVIDERS: Student in an Organized Health Care Education/Training Program
DX: E11.649 Type 2 diabetes mellitus with hypoglycemia without coma (principal); R53.1 Weakness; Z91.041 Radiographic dye allergy status; Z91.013 Allergy to seafood; Z79.84 Long term (current) use of oral hypoglycemic drugs; Z79.899 Other long term (current) drug therapy; F17.200 Nicotine dependence, unspecified, uncomplicated
CPT/HCPCS: 71046; 80053; 81001; 82947; 85025; 93005; 93010; 99284-25; J7030